=== PATIENT | male | born 1960 | race Caucasian/White ===

== ENCOUNTER 2017-11-27 19:14 | Inpatient (IN) | payer OTHER ==
[~2017-11-27] VITALS: Ht 177.8 cm; Wt 106.3 kg
[~2017-11-27 19:14] MED LIST: LITE COAT ASPI325 M1 PO; NOHOMEMEDS; PEPCID20 MG PO; PRAVACHOL80 MG PO; TOPROL XL25 MG PO; ZESTRIL2.5 MG PO
[2017-11-28 10:07] VITALS: BP 129/84
[2017-11-28 13:51] LABS: HEMATOCRIT 38.4 % (38.0-50.0); MCH 28.2 PG (29.0-34.0); MCHC 32.6 G/DL (30.0-36.0); MCV 86.5 FL (86-99); PLATELET COUNT 182 K/uL (156-360); RBC DIS.WIDTH-CV 13.8 % (11.8-14.6); RBC DIS.WIDTH-SD 43.2 % (39-53); RED BLOOD COUNT 4.44 M/uL (4.00-5.50); WHITE BLOOD COUNT 9.8 K/uL (4.1-10.2)
[2017-11-28 13:54] LABS: HEMOGLOBIN 12.5 G/DL (12.5-16.6)
[2017-11-28 13:59] LABS: CHLORIDE 109 mEq/L (99-109); SODIUM 138 mEq/L (136-147)
[2017-11-28 14:01] LABS: GLUCOSE 106 mg/dL (70-99)
[2017-11-28 14:05] LABS: GFR ESTIMATE (CALCULATED) > 59 mL/min/ (58.99-99999)
[2017-11-28 14:06] LABS: UREA NITROGEN (BUN) 12 mg/dL (9-23)
[2017-11-28 14:11] LABS: TROP-I INTERPRETATION NEGATIVE; TROPONIN-I < 0.01 ng/mL (0.0-0.30)
[2017-11-28 16:00] VITALS: BP 146/77
[2017-11-28] MEDS ORDERED: HYDROCODON-ACE1 EAC7 PO (16:13)
[2017-11-28 20:00] VITALS: BP 140/78
[2017-11-28 23:55] VITALS: BP 149/72
[2017-11-29 04:48] VITALS: BP 160/76
[2017-11-29 05:23] LABS: HEMATOCRIT 38.2 % (38.0-50.0); HEMOGLOBIN 12.5 G/DL (12.5-16.6); MCH 27.7 PG (29.0-34.0); MCHC 32.7 G/DL (30.0-36.0); MCV 84.5 FL (86-99); PLATELET COUNT 196 K/uL (156-360); RBC DIS.WIDTH-CV 13.9 % (11.8-14.6); RBC DIS.WIDTH-SD 42.6 % (39-53); RED BLOOD COUNT 4.52 M/uL (4.00-5.50); WHITE BLOOD COUNT 12.4 K/uL (4.1-10.2)
[2017-11-29 05:38] LABS: TROP-I INTERPRETATION NEGATIVE; TROPONIN-I < 0.01 ng/mL (0.0-0.30)
[2017-11-29 05:54] LABS: CHLORIDE 104 MEQ/L (99-109); CREATININE 0.9 MG/DL (0.6-1.3); GFR ESTIMATE (CALCULATED) > 59 mL/min/ (58.99-99999); GLUCOSE 129 mg/dL (70-99); POTASSIUM 4.5 MEQ/L (3.7-5.4); SODIUM 135 MEQ/L (136-147); UREA NITROGEN (BUN) 11 mg/dL (9-23)
[2017-11-29 07:30] VITALS: BP 150/74
[2017-11-29] MEDS ORDERED: NORCO 5/3251 TABLET PO (09:41)
== END 2017-11-29 12:44 | disposition home or self-care (01) | DRG 269 ==
LOC: ENRESERV 19:14 → 2SOUTH 11-28 09:02 → ENRESERV 11-28 13:42 → 4EAST 11-28 15:48
PROVIDERS: Surgery
PROC: 04V03DZ Restriction of Abdominal Aorta with Intraluminal Device, Percutaneous Approach (ICD-10-PCS; principal; 2017-11-28)
DX: I71.4 Abdominal aortic aneurysm, without rupture (principal); I10 Essential (primary) hypertension; F41.9 Anxiety disorder, unspecified; K21.9 Gastro-esophageal reflux disease without esophagitis; F17.200 Nicotine dependence, unspecified, uncomplicated; Z79.82 Long term (current) use of aspirin; Z95.1 Presence of aortocoronary bypass graft; I25.2 Old myocardial infarction; Z87.11 Personal history of peptic ulcer disease
CPT/HCPCS: 80048; 84484; 85027; C1725; C1769; C1894; J0690; J1170; J1644; J1650; J2250; J2405; J2720; J3010; J7120